=== PATIENT | female | born 1990 | race Caucasian/White ===

== ENCOUNTER 2021-03-12 16:59 | Emergency (ER) | payer OTHER ==
[2021-03-12 17:15] VITALS: BP 128/69; PULSE 95; TEMP 98.5; BMI 25.7
== END 2021-03-12 17:39 | disposition home or self-care (01) ==
LOC: JER 16:59
DX: R05.1 Acute cough (principal); R09.81 Nasal congestion; Z11.52 Encounter for screening for COVID-19
CPT/HCPCS: 99283-25; C9803; U0003; U0005